=== PATIENT | female | born 1995 | race Caucasian/White ===

== ENCOUNTER 2017-02-22 14:56 | Emergency (ER) | payer OTHER ==
[2017-02-22] MEDS ORDERED: LORazepam 2 MG/ML INJ NASAL ONE (15:24)
--- NOTE | 2017-02-22 15:28 | EDPHY ---
H & P Stated Complaint: knee pain after minor fall at climbing gym no other inj., hx disl patella - Personal History LMP (Females 10-55): IUD In Place Current Tetanus/Diphtheria Vaccine: Unsure Current Tetanus Diphtheria and Acellular Pertussis (TDAP): Unsure - Medical/Surgical History Hx Asthma: No Hx Chronic Respiratory Disease: No Hx Diabetes: No Hx Cardiac Disease: No Hx Renal Disease: No Hx Cirrhosis: No Hx Alcoholism: No Hx HIV/AIDS: No Hx Splenectomy or Spleen Trauma: No Other PMH: multp disl patellas. panic d/o. nephrotic syndrome - Social History Smoking Status: Never smoked Time Seen by Provider: 02/22/17 15:24 HPI/ROS: CHIEF COMPLAINT: HISTORY OF PRESENT ILLNESS: 21-year-old female arrives via private vehicle complaining of patellar subluxation. She was rock climbing, did not sustain direct impact did feel it laterally sublux. She was evaluated by EMS on scene and declined transport. No direct trauma or fall. The patient was initially seen by me and the nursing staff in her [employer] vehicle in the Hospital parking lot as she stated she was unable to get out of her vehicle and initial attempts were made at reduction in her vehicle in her to assist her getting out however she repeatedly subluxed. PRIMARY CARE PROVIDER: REVIEW OF SYSTEMS: A ten point review of systems was performed and is negative with the exception of the items mentioned in the HPI PHYSICAL EXAM (Prior to examination, patient consented to physical exam, hands were washed and my usual and customary physical exam procedures followed) 1) GENERAL: Well-developed, well-nourished, alert and oriented. Appears uncomfortable, evaluated initially in the back seat of a [employer] with nursing staff on scene in hospital parking lot. 2) HEAD: Normocephalic 3) HEENT: Pupils equal, round, reactive to light bilaterally. 4) LUNGS: Breathing comfortably. 5) MUSCULOSKELETAL: Exam of the left knee shows lateral patellar subluxation. Compartments are soft. 6) SKIN: Intact no tenting 7) VASCULAR: DP,PT pulses and cap refill present and brisk distally (Danette Tavarez) Constitutional: Initial Vital Signs Temperature (C) 36.0 C 02/22/17 14:59 Heart Rate 89 02/22/17 14:59 Respiratory Rate 18 02/22/17 14:59 Blood Pressure 130/82 H 02/22/17 14:59 O2 Sat (%) 98 02/22/17 14:59 O2 Delivery Mode Room Air Allergies/Adverse Reactions: Pertussis Vaccines Allergy (Verified 02/22/17 15:23) Home Medications: Medication Instructions Recorded Hydrocodone/APAP 5/325 [[place] 1 tab PO Q6 PRN #7 tab 02/22/17 5/325 (RX)] Klonopin 02/22/17 Medical Decision Making Procedures: Procedure: Subluxation/Dislocation reduction. Once the patient was placed into room 10 of the emergency department, the subluxation of the left patella was reduced using my usual technique. Post reduction the patient's neurovascular exam is normal. Post reduction x-ray demonstrates reduction of the joint to the anatomic position. The procedure was performed by myself. This process was repeated approximately 7 times in the emergency department and the patient repeatedly subluxed Procedure: Crutches indications for crutch use discussed with patient. Patient fitted for crutches by ER staff. Observed ambulating with crutches. I think the patient has the capacity to safely use crutches. Usual and customary crutch walking precautions provided Procedure: Splint A knee immobilizer was was applied by ER patient care technician instructor. After application of the splint I returned and re-examined the patient. The splint was adequately immobilizing the joint and distal to the splint the patient's circulation and sensation were intact. Patient shows no signs of compartment syndrome. Was given orthopedic precautions. (Danette Tavarez) ED Course/Re-evaluation: Patient has a recurrent mild subluxation of the left patella. Approximately 7 reductions were performed by myself patient repeatedly subluxed, including placement of Cruz bandages, knee immobilizer. Consultation with on-call orthopedics Dr. Bob mckeon 5:30 p.m. who recommended patient be discharged with knee immobilizer, crutches, no further intervention in the emergency department. Patient has been informed that she may necessitate surgical intervention on a nonemergent basis. I recommend she follow up with Orthopedics and given this follow-up information. Discharged home with analgesia, crutches, knee immobilizer, usual and customary orthopedic precautions and instructions. ( Danette Tavarez) Other Provider: The patient was evaluated and managed by the Physician Hoistman. I discussed the patient's presentation and course with the midlevel provider with them and agree with the evaluation. My co-signature indicates that I have reviewed this chart and I agree with the findings and plan of care as documented. I am the secondary supervising physician. (Felicia Mccoy) - Data Points Medications Given: Discontinued Medications Lorazepam (Ativan Injection) 1 mg NASAL EDNOW ONE Stop: 02/22/17 15:25 Last Admin: 02/22/17 15:28 Dose: 1 mg Departure - Departure Disposition: Home, Routine, Self-Care Clinical Impression: Lateral subluxation of left patella Condition: Good Instructions: Knee Dislocation (ED), Knee Immobilizer (ED) Additional Instructions: Return to the ER immediately if you experience discoloration, have worsening pain, numbness, tingling, or any other symptoms that concern you. If you received x-rays in the emergency department today, be advised, that ligamentous , tendon, muscular, and other non-bony injury cannot be fully ruled out. Try to keep your affected extremity elevated above the level of your chest, and keep cold packs on the affected area, for the next 48 hours. Referrals: Mekhi Rojas MD [Medical Doctor] - 2-3 days, call for appt. (Dr. Rojas is an orthopedic surgeon) Prescriptions: Hydrocodone/APAP 5/325 [[place] 5/325 (RX)] 1 tab PO Q6 PRN #7 tab PRN Reason: Pain, Severe
[2017-02-22 17:50] VITALS: BP 99/70; PULSE 87; RESP 15; TEMP 97.7; O2SAT 97
== END 2017-02-22 18:00 | disposition home or self-care (01) ==
DX: S83.012A Lateral subluxation of left patella, initial encounter (principal); W17.89XA Other fall from one level to another, initial encounter; Y93.31 Activity, mountain climbing, rock climbing and wall climbing
CPT/HCPCS: J2060; L1830